=== PATIENT | female | born 1945 | race Caucasian/White ===

== ENCOUNTER 2017-10-14 16:42 | Emergency (ER) | payer OTHER ==
[~2017-10-14] VITALS: Ht 162.6 cm; Wt 100.0 kg
[2017-10-14 16:54] VITALS: TEMP 36.6; Ht 162.6 cm; Wt 100.0 kg
[2017-10-14] MEDS ORDERED: ACETAMINOPHEN 500 MG TAB PO STA (17:17)
[2017-10-14] MEDS ORDERED: ONDANSETRON 2MG ODT PO STA (17:17)
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
[2017-10-14] MEDS ORDERED: ATV/1 PO (17:28)
[2017-10-14] MEDS ORDERED: ANAS1TAB19 PO (17:28)
[2017-10-14] MEDS ORDERED: METO25TA3 PO (17:28)
[2017-10-14] MEDS ORDERED: LISI10TA PO (17:28)
[2017-10-14] MEDS ORDERED: PARO1TAB27 PO (17:28)
[2017-10-14] MEDS ORDERED: RANI150T85 PO (17:28)
[2017-10-14] MEDS ORDERED: PRLSR20 PO (17:28)
[2017-10-14] MEDS ORDERED: RANI300T2 PO (17:31)
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
[2017-10-14 19:02] VITALS: PULSE 68; O2SAT 97
[2017-10-14 19:10] VITALS: BP 181/88
== END 2017-10-14 19:10 | disposition home or self-care (01) ==
LOC: EDBD 16:42 → C.EDB 16:43
DX: S06.0X0A Concussion without loss of consciousness, initial encounter (principal); M79.1 Myalgia; V43.02XA Car driver injured in collision with other type car in nontraffic accident, initial encounter; Y92.481 Parking lot as the place of occurrence of the external cause; M19.90 Unspecified osteoarthritis, unspecified site; Z79.899 Other long term (current) drug therapy; Z88.8 Allergy status to other drugs, medicaments and biological substances